=== PATIENT | female | born 1975 | race Caucasian/White ===

== ENCOUNTER 2024-01-01 14:53 | Emergency (ER) | payer SELFPAY ==
[~2024-01-01] VITALS: Ht 157.5 cm; Wt 66.0 kg
[2024-01-01 14:58] VITALS: BP 141/97; PULSE 116; RESP 16; TEMP 98.4; O2SAT 98
[2024-01-01] MEDS ORDERED: SODIUM CHLORIDE 0.9% 1,000 ML IV ONE (15:15)
== END 2024-01-01 16:41 | disposition left against medical advice (07) ==
LOC: ER 14:53
DX: R53.1 Weakness (principal); E11.9 Type 2 diabetes mellitus without complications; Z88.0 Allergy status to penicillin
CPT/HCPCS: 99284; 93970; 93923; 70450; 93005; J7030

== ENCOUNTER 2024-08-23 13:37 | Emergency (ER) | payer MEDICAID, OTHER ==
[~2024-08-23] VITALS: Ht 170.2 cm; Wt 82.0 kg
[2024-08-23 13:41] VITALS: O2SAT 98
[2024-08-23] MEDS ORDERED: FENTANYL CITRATE/PF 50MCG/ML 2ML VIAL IV STA (14:24)
[2024-08-23 15:25] LABS: BASOPHILS % 1.3 % (0.0-2.0); EOSINOPHILS % 2.6 % (0.0-5.0); HEMATOCRIT. 41.6 % (36.0-48.0); HEMOGLOBIN. 14.6 g/dL (12.0-16.0); LYMPHOCYTES % 26.2 % (20.0-50.0); MEAN CORPUSCULAR HEMOGLOBIN 32.8 pg (28.0-32.0); MEAN CORPUSCULAR HGB CONC 35.2 g/dL (31.0-37.0); MEAN CORPUSCULAR VOLUME 93.2 fL (81.0-99.0); MEAN PLATELET VOLUME 8.6 fl (7.4-10.4); MONOCYTES % 6.4 % (2.0-8.0); NEUTROPHILS % 63.5 % (40.0-76.0); PLATELET 194 x1000/uL (130-400); RED BLOOD CELL COUNT 4.46 mill/uL (4.2-5.4); RED CELL DISTRIBUTION WIDTH 12.5 % (11.6-14.6); WHITE BLOOD COUNT 8.3 x1000/uL (4.5-11.0)
[2024-08-23 15:34] LABS: CHLORIDE 106 mEq/L (98-107); POTASSIUM 3.7 mEq/L (3.5-5.1); SODIUM 140 mEq/L (136-145)
[2024-08-23 15:35] LABS: CARBON DIOXIDE 28 mEq/L (21-32)
[2024-08-23 15:36] LABS: CALCIUM 9.6 mg/dL (8.7-10.4)
[2024-08-23 15:40] LABS: CREATININE 0.9 mg/dL (0.6-1.0); GLUCOSE 81 mg/dL (70-105)
[2024-08-23 15:41] LABS: UREA NITROGEN BLOOD 13 mg/dL (9-23)
[2024-08-23 15:42] LABS: ACETAMINOPHEN < 2 ug/mL (10-30)
[2024-08-23 16:42] LABS: ETHANOL BLOOD < 10 mg/dL (<10)
[2024-08-23 23:04] LABS: CLARITY URINE CLOUDY (CLEAR); COLOR URINE YELLOW (YELLOW); GLUCOSE URINE NEGATIVE (NEGATIVE); KETONES URINE NEGATIVE (NEGATIVE); LEUKOCYTE ESTERASE URINE 3+ (NEGATIVE); NITRITE URINE NEGATIVE (NEGATIVE); OCCULT BLOOD URINE TRACE (NEGATIVE); PROTEIN URINE NEGATIVE (NEGATIVE); SPECIFIC GRAVITY URINE 1.009 (1.005-1.030); UROBILINOGEN URINE 0.2 E.U./dL (0.2-1.0)
[2024-08-23 23:12] LABS: *AMPHETAMINES SCREEN URINE NEGATIVE (NEGATIVE); *BARBITURATES SCREEN URINE NEGATIVE (NEGATIVE); *BENZODIAZEPINES SCREEN URINE PRESUMPTIVE POSITIVE (NEGATIVE); *COCAINE SCREEN URINE NEGATIVE (NEGATIVE); METHADONE URINE SCREEN NEGATIVE (NEGATIVE); OPIATES URINE SCREEN NEGATIVE (NEGATIVE); PHENCYCLIDINE URINE SCREEN NEGATIVE (NEGATIVE)
[2024-08-23 23:13] LABS: CANNABINOID URINE SCREEN NEGATIVE (NEGATIVE); ECSTASY MDMA SCREEN URINE NEGATIVE (NEGATIVE)
[2024-08-23 23:41] LABS: BACTERIA URINE 2+; SQUAMOUS EPITHELIAL CELL URINE 1+ /lpf (RARE/1+); WBC URINE TNTC /hpf (0-2)
[2024-08-24 01:09] LABS: HCG SCREEN NEGATIVE
[2024-08-24] MEDS: OLANZAPINE 5MG TABLET PO SCH (10:18)
[2024-08-24 20:34] VITALS: BP 128/66; PULSE 82; RESP 18; TEMP 36.78072; O2SAT 98
== END 2024-08-24 20:54 ==
LOC: ER 13:43
DX: T42.4X2A Poisoning by benzodiazepines, intentional self-harm, initial encounter (principal); E11.9 Type 2 diabetes mellitus without complications; F20.9 Schizophrenia, unspecified; Z88.0 Allergy status to penicillin; Z20.822 Contact with and (suspected) exposure to COVID-19; X58.XXXA Exposure to other specified factors, initial encounter
CPT/HCPCS: 36415; 80048; 80305; 80307; 80320; 80329; 81003; 84703; 85025; 87077; 87186; 87426; 99285; A4606; G0480

== ENCOUNTER 2024-12-11 18:02 | Emergency (ER) | payer MEDICAID ==
[~2024-12-11] VITALS: Ht 165.1 cm; Wt 70.0 kg
[2024-12-11 18:06] VITALS: O2SAT 99
[2024-12-11] MEDS ORDERED: NALO4SPR BOTHNSTRLS (19:05)
[2024-12-11 19:27] VITALS: BP 138/88; PULSE 107; RESP 14; TEMP 36.6; O2SAT 91
== END 2024-12-11 19:57 | disposition home or self-care (01) ==
LOC: ER 18:02
DX: T42.4X1A Poisoning by benzodiazepines, accidental (unintentional), initial encounter (principal); R41.82 Altered mental status, unspecified; E11.9 Type 2 diabetes mellitus without complications; F20.9 Schizophrenia, unspecified; F41.9 Anxiety disorder, unspecified; Z88.0 Allergy status to penicillin; Z79.899 Other long term (current) drug therapy; Y92.89 Other specified places as the place of occurrence of the external cause
CPT/HCPCS: 93005; 99283